=== PATIENT | male | born 1960 | race Two or more races ===

== ENCOUNTER 2023-05-04 18:30 | Emergency (ER) | payer OTHER ==
[~2023-05-04] VITALS: Ht 188 cm; Wt 88.5 kg
[2023-05-04] MEDS ORDERED: TAMSULOSIN HCL0.4 MG PO (18:51)
[2023-05-05] MEDS ORDERED: LEVOFLOXACIN750 MG PO (06:34)
== END 2023-05-05 07:05 ==
LOC: ER 18:30
DX: R10.32 Left lower quadrant pain (principal); R30.0 Dysuria; K57.92 Diverticulitis of intestine, part unspecified, without perforation or abscess without bleeding; N41.8 Other inflammatory diseases of prostate; Z20.822 Contact with and (suspected) exposure to COVID-19

== ENCOUNTER 2023-09-11 12:15 | Inpatient (IN) | payer OTHER ==
[~2023-09-11] VITALS: Ht 185.4 cm; Wt 93.0 kg
[~2023-09-11 12:15] MED LIST: LEVOFLOXACIN750 MG PO; TAMSULOSIN HCL0.4 MG PO
[2023-09-11] MEDS ORDERED: SEPTRA (13:50)
[2023-09-13 20:44] LABS: HEMATOCRIT 36.9 % (39.0-48.0); HEMOGLOBIN 12.6 g/dL (13-16.00)
[2023-09-14 06:50] LABS: HEMATOCRIT 35.8 % (39.0-48.0); HEMOGLOBIN 12.3 g/dL (13-16.00); MEAN CELL VOLUME 91.7 fL (80.0-100.00); MEAN CORPUSCULAR HEMOGLOBIN 31.6 pg (27.00-32.0); MEAN CORPUSCULAR HGB CONC 34.4 g/dl (32.0-36.0); RED CELL DISTRIBUTION WIDTH 13.9 % (11.5-14.5)
[2023-09-14 06:53] LABS: CALCIUM 7.7 mg/dL (8.5-10.1); CREATININE SERUM 0.9 mg/dL (0.70-1.30); GFR 85.23; POTASSIUM 4.25 mEq/L (3.5-5.1)
[2023-09-14 07:20] LABS: PLATELET COUNT 115 K/uL (150-450)
== END 2023-09-15 09:06 | disposition home or self-care (01) | DRG 714 ==
LOC: SURH 09-13 05:00 → O/R 09-13 05:00 → SURH 09-13 07:00 → SURG 09-13 09:28 → SURH 09-13 10:46 → EDBD 09-13 12:15 → SURH 09-13 12:15
PROVIDERS: ADMIT Urology; ATTEND Urology
PROC: 0VT08ZZ Resection of Prostate, Via Natural or Artificial Opening Endoscopic (ICD-10-PCS; principal; 2023-09-13 07:00)
DX: N40.1 Benign prostatic hyperplasia with lower urinary tract symptoms (principal); N41.0 Acute prostatitis